=== PATIENT | male | born 1975 | race Caucasian/White ===

== ENCOUNTER 2018-05-26 08:00 | Outpatient (CLI) | payer BC, SELFPAY ==
[2018-05-26 08:26] LABS: Hemoglobin A1C 6.1 % (4.5-6.2)
[2018-05-26 09:31] LABS: ALT 81 U/L (12-78); AST 34 U/L (15-37); Albumin 4.2 g/dL (3.4-5.0); Alkaline Phosphatase 88 U/L (46-116); Anion Gap 12.9 mmol/L (3-11); BUN 23 mg/dL (7-18); Bilirubin, Total 0.7 mg/dL (0.2-1.0); CO2 23.1 mmol/L (21.0-32.0); CREATININE 1.08 mg/dL (0.70-1.30); Chloride 106 mmol/L (98-107); Glucose 117 mg/dL (70-100); Potassium 4.2 mmol/L (3.5-5.1); Sodium 142 mmol/L (136-145); Total Protein 7.7 g/dL (6.4-8.2)
== END 2018-05-26 08:20 ==
PROVIDERS: PCP Family Medicine; Visit Provider Family Medicine
DX: E78.5 Hyperlipidemia, unspecified (principal); E11.9 Type 2 diabetes mellitus without complications
CPT/HCPCS: 36415; 80053; 83036

== ENCOUNTER 2018-06-15 07:43 | Day surgery (SDC) | payer BC, SELFPAY ==
--- NOTE | 2018-06-15 06:28 | PDOC.DSDIS_ITS ---
Discharge Plan Disposition Patient Disposition: HOME Condition: Good Discharge Details Reason For Visit: Diarrhea Attending Provider: Hayley Patton Primary Care Provider: Twin Galvin Home Meds and New Rx's Prescriptions: Continue atorvastatin 20 mg tablet 20 mg PO DAILY Qty: 90 RF: 3 topiramate [Topamax] 50 mg tablet 50 mg PO HS Qty: 90 RF: 3 mometasone 0.1 % cream 1 applic TP BID PRN (Reason: psoriasis) Qty: 45 RF: 2 coenzyme Q10 [Co Q-10] 100 mg capsule 100 mg PO DAILY RF: 0 metformin 500 MG tablet 500 mg PO BID 90 Days Qty: 180 RF: 3 prochlorperazine maleate 5 MG tablet 5 mg PO Q8H PRN Qty: 30 RF: 3 acetaminophen [Tylenol] 325 mg Capsule 925 mg PO Q6H PRNRF: 0 Discontinued polyethylene glycol 3350 17 gram powder in packet 255 g PO DAILY Qty: 15 RF: 0 bisacodyl [Dulcolax (bisacodyl)] 5 mg tablet,delayed release (DR/EC) 5 mg PO ONCE Qty: 4 RF: 0 Discharge Instructions Instructions: Colonoscopy (DC) Additional Instructions: Findings: Normal appearing Small and large bowel Multiple bx done to rule out microscopic colitis Follow up: I will call with results and go from there New Medications: none Please call if you develop: fevers >101.5 Nausea or Vomiting Abdominal pain that is not transient 1. Because there will be medication in your system for the next 24 hours, you may feel a little sleepy. Your coordination will be affected. Therefore: a. Do not drive or operate dangerous equipment for 24 hours. b. Do not drink alcohol beverages for 24 hours (not even beer). c. Plan to go home and rest for the day. 2. Generally there are no restrictions on your activity after a day or so has gone by, but you may feel a bit fatigued for a few days. 3 After you arrive home you may have a light meal and return to a normal diet as you can tolerate it without feeling sick to your stomach. 4. After surgery, you may feel pain or discomfort. This should be only transient , but if it persists please contact your doctor. 5. If there are any questions regarding the findings of your procedure, please feel free to contact your doctor. 6. If you are unable to contact your doctor with a problem, contact the hospital at [phone]. 6. Continue all your regular medications unless directed otherwise. I understand the above instructions and have no questions. Signature of Patient or Responsible Adult Escort Date/Time Name of Responsible Adult Escort Signature of Nurse Date/Time Activity:: Activity as Tolerated Diet:: As Tolerated Discharge Orders Discharge Orders: Discharge Order (Routine); Ordered 06/15/18 Ordered By: Hayley Patton
--- NOTE | 2018-06-15 06:29 | W.COLOREPORT ---
Colonoscopy Report Date of procedure: 06/15/18 Pre-op diagnosis general: Diarrhea Post-op diagnosis procedure note: same Procedure: Colonoscopy with biopsies Surgeon: Hayley Patton Anesthesia proc note operative: MAC (Lacey Garcia CRNA) Estimated blood loss (mL): 5 Pathology: other (multiple random biopsies of the large bowel) Complications: None Disposition: same day Indications: Mr. Duran is a pleasant 42 year old male seen in the office for abdominal pain and diarrhea. Risks benefits and complications were reviewed with the patient and he wished to proceed no guarantees were given or implied. Prep: Miralax/Dulcolax Procedure Start Time: 09:42 Procedure End Time: 10:04 Retraction Time: 17 minutes Findings: Normal appearing terminal ileum and colon Procedure Description: After informed consent was obtained the patient was taken to the procedure room and placed in a left decubitous position. Monitors were applied and a time out was done. The patients name, date of , procedure, allergies to medications and metal in their body was reviewed. The patient was then sedated. Once sedated and comfortable a rectal exam was done. External exam was normal. Internal exam revealed a normal sphincter tone and no palpable masses. The prostate was normal. The scope was then introduced and retroflexed. No internal hemorrhoids were identified. The scope was then advanced to the cecum without difficulty. The TI and appendiceal orifice were identified. The prep was adequate. The scope was advanced into the terminal ileum and was normal. The scope was then slowly retracted over 17 minutes back into the rectum. Multiple biopsies were done throughout the large bowel to rule out microscopic colitis. The scope was removed and the patient was woken up and taken back to Same day surgery in stable condition. The patient tolerated the procedure well and there were no immediate complications. Follow up: The patient should follow up in 10 years unless they develop changes in bowel habits or other new gastrointestinal complaints. I will call with the results of the biopsies.
[2018-06-15 08:06] VITALS: BP 137/95; PULSE 76; RESP 18; TEMP 36.9; O2SAT 95
[2018-06-15] MEDS: Lactated Ringers 1,000 ML 80 ML IV (08:27)
--- NOTE | 2018-06-15 09:50 | BOWEL_PTH ---
PATIENT: Carlos Duran LOC: [facility] U#:[id number] AGE/SX: 42/M ROOM: RE06/15/[address]: Hayley Patton MD : 1975 BED: DIS: 06/15/2018 SPEC #: [id number] RECD: 06/15/18 12:28 STATUS: HUGH REQ #: [id number] LYNN: 06/15/18 09:[address]: Hayley Patton DEPT: Surgical Specimen RECD BY: Petty Peres ENTERED: 06/15/18 12:33 SP TYPE: Bowel OTHR DR: Twin Galvin MD Tissues: 1 - BIOPSY BOWEL 2 - BIOPSY BOWEL 3 - BIOPSY BOWEL 4 - BIOPSY BOWEL Procedures: GROSS AND MICRO LEVEL 4 Comments: [id number]
[2018-06-15 10:47] VITALS: BP 123/81; PULSE 67; RESP 16; TEMP 36.7; O2SAT 98
== END 2018-06-15 11:09 | disposition home or self-care (01) ==
LOC: SUR 07:43
PROVIDERS: PCP Family Medicine; Visit Provider Surgery
PROC: 0DJD8ZZ Inspection of Lower Intestinal Tract, Via Natural or Artificial Opening Endoscopic (ICD-10-PCS; CPT 45378; principal; 2018-06-15 09:00)
DX: R19.7 Diarrhea, unspecified (principal); E11.9 Type 2 diabetes mellitus without complications; Z79.84 Long term (current) use of oral hypoglycemic drugs
CPT/HCPCS: 45380; 88305

== ENCOUNTER 2018-11-24 09:36 | Outpatient (CLI) | payer BC, SELFPAY ==
[2018-11-24 11:41] LABS: ALT 127 U/L (12-78); AST 63 U/L (15-37); Albumin 4.4 g/dL (3.4-5.0); Alkaline Phosphatase 91 U/L (46-116); Anion Gap 11.9 mmol/L (3-11); BUN 16 mg/dL (7-18); Bilirubin, Total 0.4 mg/dL (0.2-1.0); CO2 24.1 mmol/L (21.0-32.0); Calcium 9.2 mg/dL (8.5-10.1); Chloride 105 mmol/L (98-107); Glucose 111 mg/dL (70-100); Potassium 4.6 mmol/L (3.5-5.1); Sodium 141 mmol/L (136-145); Uric Acid 7.1 mg/dL (3.5-7.2)
[2018-11-24 12:01] LABS: Cholesterol 172 mg/dL (50-200); HDL Cholesterol 41 mg/dL (40-60); LDL CHOLESTEROL 107 mg/dL (<100); Triglyceride 155 mg/dL (30-150)
[2018-11-24 12:12] LABS: Hemoglobin A1C 6.3 % (4.5-6.2)
[2018-11-24 12:14] LABS: COMMENT (LAB VIEW ONLY) 203.25 mg/dL
== END 2018-11-24 09:56 ==
PROVIDERS: PCP Family Medicine; Visit Provider Family Medicine
DX: Z00.00 Encounter for general adult medical examination without abnormal findings (principal); E11.9 Type 2 diabetes mellitus without complications; M10.9 Gout, unspecified
CPT/HCPCS: 36415; 80053; 80061; 83721; 82043; 82570; 83036; 84550

== ENCOUNTER 2019-02-02 10:39 | Outpatient (CLI) | payer BC, SELFPAY ==
[2019-02-02 13:04] LABS: Hemoglobin A1C 6.3 % (4.5-6.2)
[2019-02-02 13:28] LABS: ALT 86 U/L (12-78); AST 43 U/L (15-37); Albumin 4.4 g/dL (3.4-5.0); Alkaline Phosphatase 83 U/L (46-116); Anion Gap 11.4 mmol/L (3-11); BUN 17 mg/dL (7-18); Bilirubin, Total 0.6 mg/dL (0.2-1.0); CO2 23.6 mmol/L (21.0-32.0); CREATININE 0.96 mg/dL (0.70-1.30); Calcium 8.9 mg/dL (8.5-10.1); Calculated LDL 102; Chloride 104 mmol/L (98-107); Cholesterol 183 mg/dL (50-200); Glucose 102 mg/dL (70-100); HDL Cholesterol 40 mg/dL (40-60); Potassium 4.3 mmol/L (3.5-5.1); Sodium 139 mmol/L (136-145); Total Protein 7.6 g/dL (6.4-8.2); Triglyceride 209 mg/dL (30-150)
== END 2019-02-02 10:59 ==
PROVIDERS: PCP Family Medicine; Visit Provider Family Medicine
DX: E11.9 Type 2 diabetes mellitus without complications (principal); E78.5 Hyperlipidemia, unspecified
CPT/HCPCS: 36415; 80053; 80061; 83721; 83036

== ENCOUNTER 2019-05-31 08:52 | Outpatient (CLI) | payer BC, SELFPAY ==
[2019-05-31 12:53] LABS: ALT 110 U/L (16-63); AST 49 U/L (15-37); Albumin 4.3 g/dL (3.4-5.0); Alkaline Phosphatase 84 U/L (46-116); Anion Gap 12.1 mmol/L (3-11); BUN 13 mg/dL (7-18); Bilirubin, Total 0.4 mg/dL (0.2-1.0); CO2 24.9 mmol/L (21.0-32.0); CREATININE 1.07 mg/dL (0.70-1.30); Calcium 9.1 mg/dL (8.5-10.1); Chloride 104 mmol/L (98-107); Glucose 122 mg/dL (70-100); Potassium 4.7 mmol/L (3.5-5.1); Sodium 141 mmol/L (136-145); Total Protein 7.7 g/dL (6.4-8.2)
[2019-05-31 14:12] LABS: Hemoglobin A1C 6.5 % (4.5-6.2)
== END 2019-05-31 09:12 ==
PROVIDERS: PCP Family Medicine; Visit Provider Family Medicine
DX: E11.9 Type 2 diabetes mellitus without complications (principal)
CPT/HCPCS: 36415; 80053; 83036

== ENCOUNTER 2019-09-29 07:00 | Outpatient (CLI) | payer BC, SELFPAY ==
[2019-09-29 11:17] LABS: ALT 104 U/L (16-63); AST 55 U/L (15-37); Albumin 4.3 g/dL (3.4-5.0); Alkaline Phosphatase 86 U/L (46-116); Anion Gap 8.7 mmol/L (3-11); BUN 17 mg/dL (7-18); Bilirubin, Total 0.6 mg/dL (0.2-1.0); CO2 25.3 mmol/L (21.0-32.0); CREATININE 1.09 mg/dL (0.70-1.30); Calcium 9.1 mg/dL (8.5-10.1); Calculated LDL 120 mg/dL (<100); Chloride 105 mmol/L (98-107); Cholesterol 200 mg/dL (<200); Glucose 128 mg/dL (74-106); HDL Cholesterol 38 mg/dL (40-60); Potassium 4.2 mmol/L (3.5-5.1); Sodium 139 mmol/L (136-145); Total Protein 7.6 g/dL (6.4-8.2); Triglyceride 214 mg/dL (<150)
[2019-09-29 11:18] LABS: Hemoglobin A1C 6.9 % (3.8-5.6)
== END 2019-09-29 07:20 ==
PROVIDERS: PCP Family Medicine; Visit Provider Family Medicine
DX: E11.9 Type 2 diabetes mellitus without complications (principal); E78.5 Hyperlipidemia, unspecified; K76.0 Fatty (change of) liver, not elsewhere classified
CPT/HCPCS: 36415; 80053; 80061; 83036

== ENCOUNTER 2020-03-13 09:07 | Outpatient (CLI) | payer BC, SELFPAY ==
[2020-03-13 12:34] LABS: HCT 48.7 % (40.0-50.0); HGB 16.9 g/dL (13.5-17.5); Mean Corp. HGB Concentration 34.7 g/dL (32.0-36.0); Mean Corpuscular Hemoglobin 30.3 pg (27.0-33.0); Mean Corpuscular Volume 87.4 fL (80-95); Mean Platelet Volume 9.8 fL (8.0-11.0); Platelet Count 265 x1000/uL (130-400); RBC 5.57 m/cumm (4.50-6.00); RBC Distribution Width 12.6 % (11.8-14.1); White Blood Cell Count 11.31 k/cumm (4.4-10.8)
[2020-03-13 13:10] LABS: ALT 89 U/L (16-63); AST 48 U/L (15-37); Albumin 4.5 g/dL (3.4-5.0); Alkaline Phosphatase 89 U/L (46-116); Anion Gap 12.4 mmol/L (3-11); BUN 18 mg/dL (7-18); Bilirubin, Total 0.7 mg/dL (0.2-1.0); CO2 24.6 mmol/L (21.0-32.0); COMMENT (LAB VIEW ONLY) 221.18 mg/dL; CREATININE 1.13 mg/dL (0.70-1.30); Calcium 9.3 mg/dL (8.5-10.1); Calculated LDL 114 mg/dL (<100); Chloride 104 mmol/L (98-107); Cholesterol 192 mg/dL (<200); Glucose 113 mg/dL (74-106); HDL Cholesterol 41 mg/dL (40-60); Microalb ug/mg Crea 44.7 ug/mg Cr; Potassium 4.4 mmol/L (3.5-5.1); Sodium 141 mmol/L (136-145); Total Protein 7.7 g/dL (6.4-8.2); Triglyceride 185 mg/dL (<150); Vitamin B12 524 pg/mL (193-986)
[2020-03-13 13:23] LABS: Uric Acid 7.3 mg/dL (3.5-7.2)
== END 2020-03-13 09:27 ==
PROVIDERS: PCP Family Medicine; Visit Provider Family Medicine
DX: E11.9 Type 2 diabetes mellitus without complications (principal); M10.9 Gout, unspecified; K76.0 Fatty (change of) liver, not elsewhere classified
CPT/HCPCS: 36415; 80053; 80061; 85027; 82043; 82570; 82607; 84550

== ENCOUNTER 2021-01-30 07:56 | Outpatient (CLI) | payer BC, SELFPAY ==
[2021-01-30 12:51] LABS: ALT 70 U/L (16-63); AST 29 U/L (15-37)
[2021-01-30 12:56] LABS: Hemoglobin A1C 6.9 % (<5.7)
== END 2021-01-30 07:57 | disposition home or self-care (01) ==
LOC: LOS 07:56
PROVIDERS: PCP Family Medicine; Referring Provider Family Medicine; Visit Provider Family Medicine
DX: R94.5 Abnormal results of liver function studies (principal); K76.0 Fatty (change of) liver, not elsewhere classified; R73.9 Hyperglycemia, unspecified; M10.9 Gout, unspecified
CPT/HCPCS: 36415; 83036; 84450; 84460; 84550

== ENCOUNTER 2021-04-04 03:48 | Outpatient (CLI) | payer BC, SELFPAY ==
[2021-04-06 21:51] LABS: Tissue Transglutaminase Ab IgA <1.2 U/mL; Tissue Transglutaminase Ab IgG 5.9 U/mL
== END 2021-04-04 03:49 | disposition home or self-care (01) ==
LOC: LBO 03:48
PROVIDERS: PCP Family Medicine; Visit Provider Family Medicine
DX: K52.9 Noninfective gastroenteritis and colitis, unspecified (principal)
CPT/HCPCS: 36415; 83516

== ENCOUNTER 2021-10-03 03:29 | Outpatient (CLI) | payer BC, SELFPAY ==
[2021-10-03 09:48] LABS: CREATININE 1.1 mg/dL (0.70-1.30); Calculated LDL 101 mg/dL (<100); Cholesterol 189 mg/dL (<200); HDL Cholesterol 41 mg/dL (40-60); Triglyceride 236 mg/dL (<150)
[2021-10-03 12:39] LABS: Lab Add On Test DONE
== END 2021-10-03 03:30 | disposition home or self-care (01) ==
LOC: LBO 03:30
PROVIDERS: PCP Family Medicine; Visit Provider Family Medicine
DX: I10 Essential (primary) hypertension (principal); E78.5 Hyperlipidemia, unspecified
CPT/HCPCS: 36415; 80061; 82565; 84132

== ENCOUNTER 2022-04-25 03:23 | Outpatient (CLI) | payer BC, SELFPAY ==
[2022-04-25 09:41] LABS: Vitamin B12 471 pg/mL (193-986)
[2022-04-25 18:11] LABS: Albumin ug/mg Crea 70 (<30); Albumin, Ur 14.4 mg/dL (See Note); Creatinine, Ur 204.6 mg/dL (See Note)
== END 2022-04-25 03:24 | disposition home or self-care (01) ==
LOC: LBO 03:23
PROVIDERS: PCP Family Medicine; Visit Provider Family Medicine
DX: D64.9 Anemia, unspecified (principal)
CPT/HCPCS: 36415; 82043; 82570; 82607

== ENCOUNTER 2022-10-03 15:50 | Outpatient (REF) | payer BC, SELFPAY ==
[2022-10-03 15:56] LABS: COMMENT (LAB VIEW ONLY) 215.96 mg/dL
== END 2022-10-03 15:51 | disposition home or self-care (01) ==
LOC: LBN 15:50
PROVIDERS: PCP Family Medicine; Visit Provider Family Medicine
DX: E11.9 Type 2 diabetes mellitus without complications (principal)
CPT/HCPCS: 82043; 82570

== ENCOUNTER 2023-07-03 02:42 | Outpatient (CLI) | payer BC, SELFPAY ==
[2023-07-03 09:46] LABS: CREATININE 1.1 mg/dL (0.70-1.30); Calculated LDL 95 mg/dL (<100); Cholesterol 173 mg/dL (<200); Estimated GFR 84.37 (mL/min/1.73m2); HDL Cholesterol 42 mg/dL (40-60); Potassium 4.2 mmol/L (3.5-5.1); Triglyceride 181 mg/dL (<150)
[2023-07-03 09:48] LABS: Hemoglobin A1C 6.5 % (<5.7)
[2023-07-03 11:13] LABS: Lab Add On Test DONE
[2023-07-03 11:33] LABS: ALT 63 U/L (16-63); AST 31 U/L (15-37)
== END 2023-07-03 02:43 | disposition home or self-care (01) ==
PROVIDERS: PCP Family Medicine; Visit Provider Family Medicine
DX: I10 Essential (primary) hypertension (principal); E78.5 Hyperlipidemia, unspecified; E11.51 Type 2 diabetes mellitus with diabetic peripheral angiopathy without gangrene
CPT/HCPCS: 36415; 80061; 82565; 83036; 84132; 84450; 84460

== ENCOUNTER 2023-10-14 11:52 | Outpatient (REF) | payer BC, SELFPAY ==
[2023-10-14 14:08] LABS: Microalb ug/mg Crea 80.5 ug/mg Cr
== END 2023-10-14 11:53 | disposition home or self-care (01) ==
LOC: LBN 11:52
PROVIDERS: PCP Family Medicine; Visit Provider Family Medicine
DX: E11.9 Type 2 diabetes mellitus without complications (principal)
CPT/HCPCS: 82043; 82570

== ENCOUNTER 2024-04-20 10:44 | Outpatient (CLI) | payer BC, SELFPAY ==
[2024-04-20 11:31] LABS: Hemoglobin A1C 6.9 % (<5.7)
[2024-04-20 11:59] LABS: CREATININE 0.9 mg/dL (0.70-1.30); Estimated GFR 106.67 (mL/min/1.73m2); Potassium 4.1 mmol/L (3.5-5.1)
[2024-04-22 15:18] LABS: Lab Add On Test DONE
[2024-04-22 16:30] LABS: TSH 1.56 uIU/Ml (0.36-3.74)
== END 2024-04-20 10:45 | disposition home or self-care (01) ==
LOC: LBO 10:48
PROVIDERS: PCP Family Medicine; Visit Provider Family Medicine
DX: I10 Essential (primary) hypertension (principal); E11.51 Type 2 diabetes mellitus with diabetic peripheral angiopathy without gangrene; I70.209 Unspecified atherosclerosis of native arteries of extremities, unspecified extremity; E66.9 Obesity, unspecified
CPT/HCPCS: 36415; 82565; 83036; 84132; 84443

== ENCOUNTER 2024-11-09 08:22 | Outpatient (CLI) | payer BC, SELFPAY ==
[2024-11-09 12:17] LABS: Abs Immature Grans 0.04 10^3/uL (0.0-0.06); Absolute Eosinophil Count 0.87 10^3/uL (0.0-0.7); Absolute Lymphocyte Count 3.84 10^3/uL (1.2-3.4); Absolute Monocyte Count 0.81 10^3/uL (0.1-0.8); Absolute Neutrophil Count 6.96 10^3/uL (1.2-6.7); Basophils % 0.9 %; Eosinophils % 6.9 %; HCT 53.6 % (40.0-50.0); HGB 18.5 g/dL (13.5-17.5); Immature Grans % 0.3 %; Lymphocytes % 30.4 %; MCH 31.1 pg (27.0-33.0); MCHC 34.5 % (32.0-36.0); MCV 90 fL (80-95); MPV 10.2 fL (8.0-11.0); Monocytes % 6.4 %; Neutrophils % 55.1 %; Platelet Count 315 10^3/uL (130-400); RBC 5.95 10^6/uL (4.36-5.78); RDW 12.5 % (11.8-14.1); RDW-SD 40.7 fL; WBC 12.64 10^3/uL (4.4-10.8)
[2024-11-09 12:20] LABS: Absolute Basophil Count 0.11 10^3/uL (0.0-0.2); ESR 6 mm/hr (0-15)
[2024-11-09 12:39] LABS: ALT 85 U/L (16-63); AST 51 U/L (15-37); Albumin 4.6 g/dL (3.4-5.0); Alkaline Phosphatase 94 U/L (46-116); Anion Gap 13.6 mmol/L (3-11); BUN 18 mg/dL (7-18); Bilirubin, Total 0.9 mg/dL (0.2-1.0); C-Reactive Protein < 0.50 mg/dL (<or=0.5); CO2 23.4 mmol/L (21.0-32.0); Calcium 9.7 mg/dL (8.5-10.1); Chloride 107 mmol/L (98-107); Estimated GFR 93.42 (mL/min/1.73m2); Glucose 122 mg/dL (74-106); Potassium 4.2 mmol/L (3.5-5.1); Sodium 144 mmol/L (136-145); TSH (W/Ref FT4) 1.92 uIU/mL (0.36-3.74); Total Protein 7.9 g/dL (6.4-8.2)
[2024-11-10 11:22] LABS: Lyme Ab w Rflx to Lyme Confirm Negative (Negative)
[2024-11-10 22:52] LABS: Lab Add On Test DONE
[2024-11-12 00:20] LABS: Anaplasma phagocytophilum Negative (Negative); B. miyamotoi PCR Negative (Negative); Babesia divergens/MO-1 Negative (Negative); Babesia duncani Negative (Negative); Babesia microti Negative (Negative); Ehrlichia chaffeensis Negative (Negative); Ehrlichia ewingii/canis Negative (Negative); Ehrlichia muris eauclairensis Negative (Negative)
[2024-11-17 09:03] LABS: Erythropoietin QNS mIU/mL
== END 2024-11-09 08:23 | disposition home or self-care (01) ==
LOC: LOS 08:22
PROVIDERS: PCP Family Medicine; Referring Provider Family Medicine; Visit Provider Family Medicine
DX: D64.9 Anemia, unspecified (principal); E03.9 Hypothyroidism, unspecified; R10.9 Unspecified abdominal pain; R41.89 Other symptoms and signs involving cognitive functions and awareness; R53.1 Weakness; R25.3 Fasciculation; D75.1 Secondary polycythemia
CPT/HCPCS: 36415; 80053; 82668; 85652; 87798; 84443; 85025; 86140; 86618

== ENCOUNTER 2024-12-06 01:46 | Outpatient (CLI) | payer BC, SELFPAY ==
--- NOTE | 2024-12-06 07:45 | DI.MRI_ITS ---
Exam(s) MR BRAIN WO/W EXAM: MR BRAIN WO/W CLINICAL HISTORY: recent dysarthria, hx of headaches,R47.1. TECHNIQUE: Multiplanar multisequence MRI of the brain was performed. CONTRAST MATERIAL: IV Contrast: 20 ML of Dotarem contrast administered. COMPARISON: No exams were available for comparison FINDINGS: VENTRICLES AND EXTRA AXIAL SPACES: Normal in size and morphology for the patient's age. HEMORRHAGE: None. CEREBRAL PARENCHYMA: No focus of restricted diffusion to suggest acute infarct. No space-occupying le rishi identified. BRAINSTEM/CEREBELLUM: Normal. CALVARIUM: Normal. ENHANCEMENT: No suspicious enhancement identified. VISUALIZED PARANASAL SINUSES/MASTOIDS: Clear. Orbits: Unremarkable. Pituitary: Not enlarged. Vasculature: Normal flow voids. IMPRESSION: Unremarkable MRI of the brain. DATA REPOSITORY:
[2024-12-06] MEDS: Normal Saline Flush 10 ML SYR IVP (13:08)
[2024-12-06] MEDS: Gadoterate meglumine 20 ML SYRINGE IVP (13:08)
== END 2024-12-06 02:06 ==
LOC: DI 01:46
PROVIDERS: PCP Family Medicine; Visit Provider Family Medicine
DX: R47.1 Dysarthria and anarthria (principal); R51.9 Headache, unspecified
CPT/HCPCS: 70553

== ENCOUNTER 2024-12-24 07:19 | Outpatient (CLI) | payer BC, SELFPAY ==
[2024-12-24 07:52] LABS: Abs Immature Grans 0.03 10^3/uL (0.0-0.06); Absolute Basophil Count 0.06 10^3/uL (0.0-0.2); Absolute Eosinophil Count 0.31 10^3/uL (0.0-0.7); Absolute Monocyte Count 0.68 10^3/uL (0.1-0.8); Absolute Neutrophil Count 5.12 10^3/uL (1.2-6.7); Basophils % 0.6 %; Eosinophils % 3.2 %; HCT 49.1 % (40.0-50.0); HGB 17.2 g/dL (13.5-17.5); Immature Grans % 0.3 %; Lymphocytes % 36.1 %; MCH 31.1 pg (27.0-33.0); MCV 89 fL (80-95); MPV 9.2 fL (8.0-11.0); Neutrophils % 52.8 %; Platelet Count 234 10^3/uL (130-400); RBC 5.53 10^6/uL (4.36-5.78); RDW 12.5 % (11.8-14.1); RDW-SD 40.9 fL
[2024-12-24 08:40] LABS: ALT 63 U/L (16-63); AST 37 U/L (15-37); Albumin 4.1 g/dL (3.4-5.0); Alkaline Phosphatase 81 U/L (46-116); Anion Gap 13.4 mmol/L (3-11); BUN 19 mg/dL (7-18); Bilirubin, Total 0.7 mg/dL (0.2-1.0); CO2 21.6 mmol/L (21.0-32.0); CREATININE 0.8 mg/dL (0.70-1.30); Calcium 9.2 mg/dL (8.5-10.1); Chloride 108 mmol/L (98-107); Estimated GFR 109.85 (mL/min/1.73m2); Glucose 148 mg/dL (74-106); Potassium 3.8 mmol/L (3.5-5.1); Sodium 143 mmol/L (136-145); Total Protein 7.6 g/dL (6.4-8.2)
[2024-12-27 11:32] LABS: Lyme Ab w Rflx to Lyme Confirm Negative (Negative)
[2024-12-27 15:49] LABS: Anaplasma phagocytophilum Negative (Negative); B. miyamotoi PCR Negative (Negative); Babesia divergens/MO-1 Negative (Negative); Babesia duncani Negative (Negative); Babesia microti Negative (Negative); Ehrlichia chaffeensis Negative (Negative); Ehrlichia ewingii/canis Negative (Negative); Ehrlichia muris eauclairensis Negative (Negative)
== END 2024-12-24 07:20 | disposition home or self-care (01) ==
LOC: LBO 07:20
PROVIDERS: PCP Family Medicine; Visit Provider Family Medicine
DX: R47.1 Dysarthria and anarthria (principal); R25.3 Fasciculation; D64.9 Anemia, unspecified; R10.9 Unspecified abdominal pain
CPT/HCPCS: 36415; 80053; 87798; 85025; 86618

== ENCOUNTER 2025-01-04 18:48 | Outpatient (CLI) | payer BC, SELFPAY ==
[2025-01-04 17:20] LABS: Creatine Kinase 158 U/L (39-308); PHOSPHORUS 3.3 mg/dL (2.6-4.7)
[2025-01-04 18:21] LABS: Folate 14.5 ng/mL (8.6-20.0); Vitamin B12 339 pg/mL (193-986)
[2025-01-05 09:14] LABS: Lab Add On Test DONE
[2025-01-05 18:10] LABS: Rheumatoid Factor <8.6 IU/mL (<12.0)
[2025-01-06 12:00] LABS: ANA Interpretation Negative (Negative)
[2025-01-06 14:18] LABS: Albumin 63.7 % (55.8-66.1); Albumin g/dL 4.9 g/dL (3.6-5.2); Total Protein 7.7 g/dL (6.3-8.2)
[2025-01-12 09:03] LABS: Misc Referral (MAYO) See Comments
[2025-01-12 09:51] LABS: Methylmalonic Acid 0.19 nmol/mL (<=0.40)
== END 2025-01-04 18:49 | disposition home or self-care (01) ==
LOC: LBO 18:49
PROVIDERS: PCP Family Medicine; Visit Provider Psychiatry & Neurology Neurology
DX: R25.3 Fasciculation (principal); G62.9 Polyneuropathy, unspecified; R47.1 Dysarthria and anarthria
CPT/HCPCS: 36415; 80186; 82550; 82607; 82746; 83520; 84100; 84165; 86038; 86431

== ENCOUNTER 2025-02-01 01:03 | Outpatient (CLI) | payer BC, SELFPAY ==
--- NOTE | 2025-02-01 06:30 | DI.MRI_ITS ---
Exam(s) MR CERVICAL SPINE WO EXAM: MR CERVICAL SPINE WO CLINICAL HISTORY: fasciculations in arms and tongue,r25.3 TECHNIQUE: Multiplanar multisequence MRI of the cervical spine was performed without intravenous con trast. COMPARISON: There are no plain films of cervical spine available at time of this MRI interpretation. FINDINGS: CERVICOMEDULLARY JUNCTION: Intact with no evidence of cerebellar tonsillar ectopia. No obvious abnor mality of the odontoid process. No evidence of Chiari 1 malformation. CERVICAL SPINAL CORD: There is no abnormal signal in the cervical spinal cord and no evidence of foca l cord atrophy nor focal cord swelling. OSSEOUS:There are no cervical fractures evident. No significant osseous lesions in the cervical vert ebrae. There is no loss of the normal cervical curvature. INDIVIDUAL LEVELS: C2-3: No disc herniation or central canal stenosis. No significant facet arthropathy. No foraminal stenosis. C3-4: No disc herniation or central canal stenosis. There is some facet arthropathy on the left side. There is tiny left-sided Luschka joint osteophytes. There is mild left-sided foraminal stenosis. Th ere is no foraminal stenosis on the right side at this level. C4-5: No disc herniation nor central canal stenosis.No facet arthropathy. No foraminal stenosis C5-6: Normal disc height and signal. No disc herniation or central canal stenosis. No significant f acet arthrosis nor foraminal stenosis on either side. C6-7: Mild disc space narrowing. There is a central-posterolateral right disc herniation at this le mary which extends posteriorly 4 mm and is approximately 12 mm wide, effacing the anterior and right s geovanna of the thecal sac and resulting in AP canal measurement of 7 mm. There is also a significant Sapna chka joint osteophyte on the right side at this level and a tiny left-sided Luschka joint osteophyte. There are only mild degenerative changes in the facet joints at this level. Mild foraminal stenosi s on the right side. No foraminal stenosis on the left side. C7-T1: No disc herniation nor central canal stenosis. No facet arthropathy.No foraminal stenosis. IMPRESSION: 1. Main findings here at C6-7 level where it there is a central-posterolateral right herniation at this level as described above. This effaces the anterior thecal sac and right lateral recess. There is mild ipsilateral foraminal stenosis. There is also a prominent right-sided Luschka joint osteophyte at this level. 2. Other levels appear unremarkable. DATA REPOSITORY:
== END 2025-02-01 01:23 ==
LOC: DI 01:03
PROVIDERS: PCP Family Medicine; Visit Provider Psychiatry & Neurology Neurology
DX: R25.3 Fasciculation (principal); M50.223 Other cervical disc displacement at C6-C7 level
CPT/HCPCS: 72141

== ENCOUNTER 2025-02-09 10:04 | Outpatient (CLI) | payer BC, SELFPAY ==
[2025-02-09 11:12] LABS: FREE T4 1.03 ng/dL (0.76-1.46)
[2025-02-09 11:31] LABS: Vitamin B12 819 pg/mL (193-986)
== END 2025-02-09 10:05 | disposition home or self-care (01) ==
LOC: LBO 10:04
PROVIDERS: PCP Family Medicine; Visit Provider Psychiatry & Neurology Neurology
DX: E66.9 Obesity, unspecified (principal); G62.9 Polyneuropathy, unspecified
CPT/HCPCS: 36415; 82607; 84439

== ENCOUNTER 2025-05-18 13:32 | Outpatient (CLI) | payer BC, SELFPAY ==
[2025-05-18 10:01] LABS: Abs Immature Grans 0.04 10^3/uL (0.0-0.06); HCT 44.9 % (40.0-50.0); HGB 16.0 g/dL (13.5-17.5); Immature Grans % 0.4 %; MCH 31.7 pg (27.0-33.0); MCHC 35.6 % (32.0-36.0); MCV 89 fL (80-95); MPV 9.6 fL (8.0-11.0); Platelet Count 241 10^3/uL (130-400); RBC 5.04 10^6/uL (4.36-5.78); RDW 12.8 % (11.8-14.1); RDW-SD 41.7 fL; WBC 11.09 10^3/uL (4.4-10.8)
[2025-05-18 10:29] LABS: ALT 63 U/L (16-63); AST 36 U/L (15-37); Albumin 4.4 g/dL (3.4-5.0); Alkaline Phosphatase 83 U/L (46-116); Anion Gap 9.9 mmol/L (3-11); BUN 10 mg/dL (7-18); Bilirubin, Total 0.9 mg/dL (0.2-1.0); CO2 26.1 mmol/L (21.0-32.0); Calcium 9.5 mg/dL (8.5-10.1); Chloride 104 mmol/L (98-107); Glucose 164 mg/dL (74-106); Potassium 4.0 mmol/L (3.5-5.1); Sodium 140 mmol/L (136-145); Total Protein 7.9 g/dL (6.4-8.2)
== END 2025-05-18 13:33 | disposition home or self-care (01) ==
LOC: LBO 07-01 13:32
PROVIDERS: PCP Family Medicine; Visit Provider Psychiatry & Neurology Neurology
DX: G12.21 Amyotrophic lateral sclerosis (principal); T50.905A Adverse effect of unspecified drugs, medicaments and biological substances, initial encounter
CPT/HCPCS: 36415; 80053; 85025

== ENCOUNTER 2025-06-16 13:15 | Outpatient (CLI) | payer BC, SELFPAY ==
[2025-06-16 13:35] LABS: Abs Immature Grans 0.04 10^3/uL (0.0-0.06); HCT 44.2 % (40.0-50.0); HGB 15.6 g/dL (13.5-17.5); Immature Grans % 0.4 %; MCH 31.3 pg (27.0-33.0); MCHC 35.3 % (32.0-36.0); MCV 89 fL (80-95); MPV 9.5 fL (8.0-11.0); Platelet Count 236 10^3/uL (130-400); RBC 4.99 10^6/uL (4.36-5.78); RDW 12.2 % (11.8-14.1); RDW-SD 39.5 fL; WBC 10.88 10^3/uL (4.4-10.8)
[2025-06-16 14:17] LABS: INR 1.1 (0.9-1.1); PTT Activated 25.0 sec (20.6-30.2); Prothrombin Time 10.7 sec (9.1-11.1)
[2025-06-16 14:59] LABS: Magnesium 2.0 mg/dL (1.8-2.4)
[2025-06-16 18:45] LABS: ALT 65 U/L (16-63); AST 38 U/L (15-37); Albumin 4.1 g/dL (3.4-5.0); Alkaline Phosphatase 99 U/L (46-116); Anion Gap 14.7 mmol/L (3-11); BUN 15 mg/dL (7-18); Bilirubin, Total 0.6 mg/dL (0.2-1.0); CO2 20.3 mmol/L (21.0-32.0); Calcium 9.1 mg/dL (8.5-10.1); Chloride 102 mmol/L (98-107); Estimated GFR 106.01 (mL/min/1.73m2); Glucose 304 mg/dL (74-106); Potassium 3.8 mmol/L (3.5-5.1); Sodium 137 mmol/L (136-145); Total Protein 7.8 g/dL (6.4-8.2)
== END 2025-06-16 13:16 | disposition home or self-care (01) ==
LOC: LBO 13:15
PROVIDERS: Psychiatry & Neurology Neurology; PCP Family Medicine; Visit Provider Psychiatry & Neurology Neurology
DX: G12.21 Amyotrophic lateral sclerosis (principal); T50.905A Adverse effect of unspecified drugs, medicaments and biological substances, initial encounter
CPT/HCPCS: 36415; 80053; 83735; 84100; 85025; 85610; 85730

== ENCOUNTER 2025-06-16 13:32 | Outpatient (CLI) | payer BC, SELFPAY ==
--- NOTE | 2025-06-16 13:30 | RT.EKG_ITS ---
APPROVED REPORT Exam: Resting ECG Reason for Exam: ALS Patient Location: O HR:91 bpm ECG Measurements Heart Rate 91 AXIS PA 142 P 14 QRSd 93 QRS -5 QT 341 T 14 QTc 420 Conclusion Sinus rhythm...normal P axis, V-rate 50- 99 RSR' in V1 Otherwise normal ECG
== END 2025-06-16 13:33 | disposition home or self-care (01) ==
PROVIDERS: PCP Family Medicine; Visit Provider Family Medicine
DX: G12.21 Amyotrophic lateral sclerosis (principal)
CPT/HCPCS: 93005; 93010

== ENCOUNTER 2025-06-28 11:03 | Outpatient (CLI) | payer BC, SELFPAY ==
[2025-06-28 11:33] LABS: Abs Immature Grans 0.04 10^3/uL (0.0-0.06); HCT 45.0 % (40.0-50.0); HGB 15.6 g/dL (13.5-17.5); Immature Grans % 0.4 %; MCH 30.8 pg (27.0-33.0); MCHC 34.7 % (32.0-36.0); MCV 89 fL (80-95); MPV 9.5 fL (8.0-11.0); Platelet Count 253 10^3/uL (130-400); RBC 5.06 10^6/uL (4.36-5.78); RDW 12.1 % (11.8-14.1); RDW-SD 39.6 fL; WBC 9.88 10^3/uL (4.4-10.8)
[2025-06-28 12:14] LABS: ALT 65 U/L (16-63); AST 33 U/L (15-37); Albumin 4.3 g/dL (3.4-5.0); Alkaline Phosphatase 95 U/L (46-116); Anion Gap 13.0 mmol/L (3-11); BUN 12 mg/dL (7-18); Bilirubin, Total 0.7 mg/dL (0.2-1.0); CO2 23.0 mmol/L (21.0-32.0); Calcium 9.0 mg/dL (8.5-10.1); Chloride 100 mmol/L (98-107); Estimated GFR 106.01 (mL/min/1.73m2); Glucose 323 mg/dL (74-106); Magnesium 1.9 mg/dL (1.8-2.4); Potassium 3.9 mmol/L (3.5-5.1); Sodium 136 mmol/L (136-145); Total Protein 7.7 g/dL (6.4-8.2)
[2025-06-28 12:25] LABS: Digoxin < 0.20 ng/mL (0.90-2.00)
[2025-06-30 17:41] LABS: Lab Add On Test DONE
[2025-06-30 17:58] LABS: Hemoglobin A1C 7.2 % (<5.7)
== END 2025-06-28 11:04 | disposition home or self-care (01) ==
LOC: LBO 11:03
PROVIDERS: PCP Family Medicine; Visit Provider Psychiatry & Neurology Neurology
DX: G12.21 Amyotrophic lateral sclerosis (principal)
CPT/HCPCS: 36415; 80053; 80162; 83036; 83735; 84100; 85025

== ENCOUNTER 2025-07-05 10:40 | Outpatient (CLI) | payer BC, SELFPAY ==
[2025-07-05 10:54] LABS: Abs Immature Grans 0.03 10^3/uL (0.0-0.06); HCT 44.6 % (40.0-50.0); HGB 15.7 g/dL (13.5-17.5); Immature Grans % 0.3 %; MCH 31.2 pg (27.0-33.0); MCHC 35.2 % (32.0-36.0); MCV 89 fL (80-95); MPV 9.4 fL (8.0-11.0); Platelet Count 235 10^3/uL (130-400); RBC 5.03 10^6/uL (4.36-5.78); RDW 12.1 % (11.8-14.1); RDW-SD 39.7 fL; WBC 11.29 10^3/uL (4.4-10.8)
[2025-07-05 11:17] LABS: ALT 56 U/L (16-63); AST 35 U/L (15-37); Albumin 4.2 g/dL (3.4-5.0); Alkaline Phosphatase 97 U/L (46-116); Anion Gap 14.9 mmol/L (3-11); BUN 14 mg/dL (7-18); Bilirubin, Total 0.7 mg/dL (0.2-1.0); CO2 21.1 mmol/L (21.0-32.0); Calcium 9.1 mg/dL (8.5-10.1); Chloride 103 mmol/L (98-107); Glucose 207 mg/dL (74-106); Magnesium 1.6 mg/dL (1.8-2.4); Potassium 3.7 mmol/L (3.5-5.1); Sodium 139 mmol/L (136-145); Total Protein 7.9 g/dL (6.4-8.2)
[2025-07-05 11:40] LABS: Digoxin 0.65 ng/mL (0.90-2.00)
== END 2025-07-05 10:41 | disposition home or self-care (01) ==
LOC: LBO 10:41
PROVIDERS: PCP Family Medicine; Visit Provider Psychiatry & Neurology Neurology
DX: G12.21 Amyotrophic lateral sclerosis (principal)
CPT/HCPCS: 36415; 80053; 80162; 83735; 84100; 85025

== ENCOUNTER 2025-07-12 10:50 | Outpatient (CLI) | payer BC, SELFPAY ==
[2025-07-12 10:59] LABS: Abs Immature Grans 0.02 10^3/uL (0.0-0.06); HCT 44.3 % (40.0-50.0); HGB 15.3 g/dL (13.5-17.5); Immature Grans % 0.2 %; MCH 30.5 pg (27.0-33.0); MCHC 34.5 % (32.0-36.0); MCV 88 fL (80-95); MPV 9.5 fL (8.0-11.0); Platelet Count 239 10^3/uL (130-400); RBC 5.02 10^6/uL (4.36-5.78); RDW 12.1 % (11.8-14.1); RDW-SD 39.0 fL; WBC 10.43 10^3/uL (4.4-10.8)
[2025-07-12 11:14] LABS: ALT 55 U/L (16-63); AST 33 U/L (15-37); Albumin 4.1 g/dL (3.4-5.0); Alkaline Phosphatase 93 U/L (46-116); Anion Gap 12.8 mmol/L (3-11); BUN 16 mg/dL (7-18); Bilirubin, Total 0.5 mg/dL (0.2-1.0); CO2 22.2 mmol/L (21.0-32.0); Calcium 8.8 mg/dL (8.5-10.1); Chloride 101 mmol/L (98-107); Glucose 275 mg/dL (74-106); Magnesium 1.7 mg/dL (1.8-2.4); Potassium 3.6 mmol/L (3.5-5.1); Sodium 136 mmol/L (136-145); Total Protein 7.6 g/dL (6.4-8.2)
[2025-07-12 11:29] LABS: Digoxin 0.60 ng/mL (0.90-2.00)
== END 2025-07-12 10:51 | disposition home or self-care (01) ==
LOC: LBO 10:50
PROVIDERS: PCP Family Medicine; Visit Provider Psychiatry & Neurology Neurology
DX: G12.21 Amyotrophic lateral sclerosis (principal)
CPT/HCPCS: 36415; 80053; 80162; 83735; 84100; 85025

== ENCOUNTER 2025-07-31 13:00 | Emergency (ER) | payer BC, SELFPAY ==
[2025-07-31 13:07] VITALS: BP 149/91; PULSE 103; RESP 16; TEMP 36.7; O2SAT 96
--- NOTE | 2025-07-31 13:16 | W.ED.GENAD ---
Discharge Plan Disposition Patient Disposition: Home Discharge Details Clinical Impression: Hematuria, Ureterolithiasis Primary Care Provider: Tony Drake ED Provider: Pablo Vieira Iola Meds and New Rx's Prescriptions: Continued losartan-hydrochlorothiazide 100-12.5 mg tablet 1 tab PO DAILY Qty: 90 3RF coenzyme Q10 [Co Q-10] 100 mg capsule 100 mg PO DAILY topiramate [Topamax] 50 mg tablet 50 mg PO HS Qty: 90 3RF (DME) blood-glucose meter Misc See Rx Instructions miscellaneous .MEDSUPPLY Qty: 1 0RF Rx Instructions: As directed (DME) Accu-Chek Guide test strips Strip See Rx Instructions .MEDSUPPLY Qty: 100 3RF Rx Instructions: test daily allopurinol 300 mg tablet 300 mg PO DAILY Qty: 90 3RF cyanocobalamin (vitamin B-12) 1,000 mcg/mL solution See Rx Instructions .ROUTE .COMPLEX Qty: 8 3RF Dose Instruction: INJECT 1000MCG INTO THE MUSCLE ONCE WEEKLY Rx Instructions: INJECT 1000MCG INTO THE MUSCLE ONCE WEEKLY methylcobalamin 50 mg IM .2xw Qty: 24 3RF Rx Instructions: 50mg IM 2x per week. In place of cyanocobalamin IM colestipol 1 gram tablet 1 g PO TID Qty: 270 3RF Rx Instructions: swallow whole tab w/any liquid;do not crush/chew/cut;administer other meds 1hr before/4hr after taking dose dose increase by GI prochlorperazine maleate 5 mg tablet 5 mg PO Q8H PRN Qty: 30 3RF Rx Instructions: Take 1-2 tablets every 8 hours as needed for headache. lorazepam 0.5 mg tablet 0.5 mg PO BID PRN (Reason: anxiety/panic) Qty: 10 0RF atorvastatin 20 mg tablet 20 mg PO DAILY Qty: 90 3RF (DME) lancets Misc See Rx Instructions .MEDSUPPLY Qty: 100 4RF Rx Instructions: Check blood sugar once a day venlafaxine [Effexor XR] 37.5 mg capsule,extended release 24hr 37.5 mg PO DAILY Qty: 90 3RF (DME) Wazzap Luer Lock Syr-needle 3 mL 25 gauge x 1 syringe See Rx Instructions .Route Qty: 4 0RF Rx Instructions: As directed for B12 IM injections dextromethorphan-quinidine 20-10 mg capsule 1 cap PO Q12H ascorbic acid (vitamin C) 500 mg tablet 500 mg PO BID pyridoxine (vitamin B6) 50 mg tablet 50 mg PO DAILY riluzole 50 mg tablet 50 mg PO BID Rx Instructions: administer on an empty stomach, at least 1 hour before or 2 hours after food/meal(s) vitamin E mixed 400 unit capsule 400 unit PO DAILY thiamine HCl (vitamin B1) 50 mg tablet 50 mg PO DAILY metformin [Fortamet] 1,000 mg tablet extended release 24hr 2,000 mg PO DAILY Qty: 180 3RF amlodipine 5 mg tablet 5 mg PO DAILY Qty: 30 3RF Discharge Instructions Instructions: How to Strain Your Urine, Kidney Stone Diet Additional Instructions: You are seen in the emergency department for your testicular pain. You are found to have a kidney stone which is 3 to 4 mm and is near the top of your right ureter. As we discussed if you develop worsening pain cannot urinate or develop any fever please return to the emergency department. Otherwise please follow-up with urology team in the next week. For your pain please take medications as follows: 1. Take acetaminophen (Tylenol), 1,000 mg (two 500 mg tabs) every 6 hours [2. Take ibuprofen (Advil), 400 mg every 6 hours.] Stand Alone Forms: Portal Information Referrals: [facility] [Provider Group] Discharge Data Discharge Date/Time-TO BE ENTERED AT DEPARTURE: 07/31/25 16:28 HPI General Date/Time Provider Initiated Documentation: 07/31/25 13:15. HPI Narrative: MDM This is an overall quite well-appearing normothermic but initially tachycardic 50-year-old male with right sided intermittent testicular pain concerning for torsion vs. kidney stone. Patient circumcised and has had no dysuria make my suspicion lower for urinary tract infection. No pain out of proportion to suggest necrotizing soft tissue infection. No testicular pain to suggest Marcell's gangrene. No right lower quadrant pain to suggest appendicitis. No flank pain to suggest ureterolithiasis so I did not feel patient required a CT scan. Will obtain basic labs in the event the patient was component of dehydration. In setting of his ALS will also obtain a CK level to assess for rhabdomyolysis. No trauma to flank to suggest increased risk for renal injury so I did not feel that the patient required a CT scan of his abdomen pelvis. Soft nontender abdomen so I was not suspicious for referred pain from intra-abdominal source. Circumcised penis make my suspicion lower for balanitis. No signs of paraphimosis on exam. 2:24 PM Mildly elevated CK not consistent with rhabdomyolysis. CBC with new leukocytosis. No thrombocytopenia. No anemia. Basic metabolic panel showing no MEGAN. Hyperglycemia mild anion gap but normal bicarbonate??not consistent with DKA. No acute electrolyte abnormalities. 4:02 PM Patient was found to have a right UPJ 3 to 4 mm calculus with minimal hydronephrosis. As a result I canceled his scrotal ultrasound and since ipsilateral stone was likely the source of his pain. I have asked healthy coordinator Miguelina to have the patient seen in the next week by urology. He will strain urine. We discussed pros and cons of tamsulosin and opiates. Patient and his preferred avoiding opiates as patient is in a clinical trial for ALS and has to have all medications to be on acetaminophen and ibuprofen and antibiotics cleared by the clinical trial. Patient is and I discussed that he should be returned to the emergency department for any worsening pain nausea or vomiting did not stop any inability to urinate. Patient understood return indications and was discharged with an empiric trial of expectant outpatient management. HPI This is a patient with a history of a bruised kidney presenting with right-sided testicular pain and hematuria. The patient experienced right-sided testicular pain at approximately 6 AM, which was alleviated with the administration of 2 Tylenol tablets, allowing him to return to sleep. Upon awakening, he observed brown-colored urine. He reports no recent trauma or falls that could have resulted in injury. He is not currently on any anticoagulant therapy. He has no history of nephrolithiasis and reports no flank or abdominal pain. The testicular pain has since resolved. He reports no recent sexual activity or trauma to the testicles. He also reports no gastrointestinal symptoms such as nausea or vomiting, and no penile discharge. He recalls a similar episode of hematuria last week, which resolved spontaneously. Exam General: Well-appearing in no acute distress speaking in complete sentences. Head: Normocephalic, atraumatic. Eye: Extraocular eye movements intact. No conjunctival injection. No scleral icterus. Ear, nose, mouth, throat: Grossly normal inspection. Normal voice, handling secretions normally. Neck: Trachea midline. Cardiovascular: Well-perfused distal extremities. Respiratory: Nonlabored respiration. Back: No CVA tenderness. No rash to flank. Gastrointestinal: Nondistended abdomen. Soft. Nontender. No rebound. No guarding. : Circumcised penis. Cremasteric reflex intact. No rash to testes. No signs of trauma to the testes. Musculoskeletal: No edema. Moving all 4 extremities spontaneously. Skin: Normal for age and race, grossly normal temperature and turgor. No acute rash. Neurologic: Alert and appropriate, no apparent acute deficits. Related Data Home Medications ?Medication ?Instructions ?Recorded ?Confirmed coenzyme Q10 100 mg capsule (Co 100 mg PO DAILY 05/26/18 06/02/25 Q-10) colestipol 1 gram tablet 1 g PO TID #270 tabs 09/06/24 06/02/25 prochlorperazine maleate 5 mg 5 mg PO Q8H PRN #30 tab-caps 10/14/24 06/02/25 tablet losartan 100 1 tab PO DAILY #90 tabs 11/09/24 06/02/25 mg-hydrochlorothiazide 12.5 mg tablet lorazepam 0.5 mg tablet 0.5 mg PO BID PRN anxiety/panic 02/02/25 06/02/25 #10 tabs atorvastatin 20 mg tablet 20 mg PO DAILY #90 tabs 02/21/25 06/02/25 allopurinol 300 mg tablet 300 mg PO DAILY #90 tabs 02/22/25 06/02/25 blood sugar diagnostic (Accu-Chek #100 ea 02/22/25 06/02/25 Guide test strips) blood-glucose meter #1 ea 02/22/25 06/02/25 topiramate 50 mg tablet (Topamax) 50 mg PO HS #90 tab-caps 02/22/25 06/02/25 lancets #100 ea 03/21/25 06/02/25 venlafaxine 37.5 mg 37.5 mg PO DAILY #90 caps 04/04/25 06/02/25 capsule,extended release 24 hr (Effexor XR) syringe with needle 3 mL 25 gauge #4 ea 04/18/25 06/02/25 x 1 (Wazzap Luer Lock Syringe with needle) ascorbic acid (vitamin C) 500 mg 500 mg PO BID 05/04/25 06/02/25 tablet dextromethorphan 20 mg-quinidine 1 cap PO Q12H 05/04/25 06/02/25 10 mg capsule pyridoxine (vitamin B6) 50 mg 50 mg PO DAILY 05/04/25 06/02/25 tablet riluzole 50 mg tablet 50 mg PO BID 05/04/25 06/02/25 thiamine HCl (vitamin B1) 50 mg 50 mg PO DAILY 05/04/25 06/02/25 tablet vitamin E mixed 400 unit capsule 400 unit PO DAILY 05/04/25 06/02/25 cyanocobalamin (vitamin B-12) See Rx Instructions .Route 06/02/25 06/02/25 1,000 mcg/mL injection solution .COMPLEX #8 mL methylcobalamin 50 mg IM .2xw #24 pens 06/02/25 06/02/25 metformin 1,000 mg tablet,extended 2,000 mg (2 x 1,000 mg) PO DAILY 07/03/25 release 24hr (osmotic) (Fortamet) #180 tabs amlodipine 5 mg tablet 5 mg PO DAILY #30 tabs 07/25/25 Previous Rx's ?Medication ?Instructions ?Recorded colestipol 1 gram tablet 1 g PO TID #270 tabs 09/06/24 prochlorperazine maleate 5 mg 5 mg PO Q8H PRN #30 tab-caps 10/14/24 tablet losartan 100 1 tab PO DAILY #90 tabs 11/09/24 mg-hydrochlorothiazide 12.5 mg tablet lorazepam 0.5 mg tablet 0.5 mg PO BID PRN anxiety/panic 02/02/25 #10 tabs atorvastatin 20 mg tablet 20 mg PO DAILY #90 tabs 02/21/25 allopurinol 300 mg tablet 300 mg PO DAILY #90 tabs 02/22/25 blood sugar diagnostic (Accu-Chek #100 ea 02/22/25 Guide test strips) blood-glucose meter #1 ea 02/22/25 topiramate 50 mg tablet (Topamax) 50 mg PO HS #90 tab-caps 02/22/25 lancets #100 ea 03/21/25 venlafaxine 37.5 mg 37.5 mg PO DAILY #90 caps 04/04/25 capsule,extended release 24 hr (Effexor XR) syringe with needle 3 mL 25 gauge #4 ea 04/18/25 x 1 (Wazzap Luer Lock Syringe with needle) cyanocobalamin (vitamin B-12) See Rx Instructions .Route 06/02/25 1,000 mcg/mL injection solution .COMPLEX #8 mL methylcobalamin 50 mg IM .2xw #24 pens 06/02/25 metformin 1,000 mg tablet,extended 2,000 mg (2 x 1,000 mg) PO DAILY 07/03/25 release 24hr (osmotic) (Fortamet) #180 tabs amlodipine 5 mg tablet 5 mg PO DAILY #30 tabs 07/25/25 Allergies Allergy/AdvReac Type Severity Reaction Status Date / Time indomethacin AdvReac Severe blood in Verified 07/31/25 13:11 stool dulaglutide (From Trulicity) AdvReac Intermediate upset Verified 07/31/25 13:11 stomach General Stated Complaint: Male Reproductive Problem KRISTA: 3 Course Vital Signs Vital signs: Vital Signs Temperature 36.7 C 07/31/25 13:07 Pulse 103 H 07/31/25 13:07 Respiratory Rate 16 07/31/25 13:07 Blood Pressure 149/91 H 07/31/25 13:07 Pulse Oximetry 96 07/31/25 13:07 Temperature 36.7 C 07/31/25 13:07 Temperature Source Tympanic 07/31/25 13:07 Pulse 103 H 07/31/25 13:07 Respiratory Rate 16 07/31/25 13:07 Blood Pressure 149/91 H 07/31/25 13:07 Pulse Oximetry 96 07/31/25 13:07 Oxygen Delivery Method Room Air 07/31/25 13:07 Oxygen Flow Rate 0 07/31/25 13:07 PFSH All Active Problems (Updated 07/31/25 @ 16:10 by Pablo Vieira MD) Ureterolithiasis (Acute) Hematuria (Acute) ALS (amyotrophic lateral sclerosis) (Acute) B12 deficiency (Acute) Dysphagia (Acute) Fasciculations (Acute) Dysarthria (Acute) Polycythemia (Acute) Hypertension (Chronic) Fatigue (Acute) Muscle twitching (Acute) Weakness (Acute) Obesity (BMI 30.0-34.9) (Acute) Viral pharyngitis (Acute) COVID-19 (Acute ~03/25/22) Lab test positive for detection of COVID-19 virus (Acute) Irritable bowel disease (Chronic) Shoulder pain, left (Acute) Chronic diarrhea (Acute) Acute epididymitis (Acute) Anxiety (Chronic) Situational due to overwork Gout (Chronic) Sprain of shoulder, right (Acute) History of myringotomy (Acute) Status post adenoidectomy (Acute) Pollen allergy (Acute 10/13/17) Loose stools (Acute 10/13/17) Family history of thyroid disease (Acute 10/24/17) Eczema (Acute 07/08/13) Chronic diarrhea (Acute 02/23/18) Psoriasis (Chronic) Continue topamax Migraine headache (Chronic) Type 2 diabetes mellitus without complication, without long-term current use of insulin (Acute 11/24/17) deteriorated NAFLD (nonalcoholic fatty liver disease) (Acute 11/24/17) Hyperlipidemia (Acute 10/13/17) Medical History Chronic diarrhea IBD (neg scope) Migraine Non-alcoholic fatty liver disease Psoriasis Diabetes type 2, controlled Hyperlipidemia Surgical History Myringotomy w/ PE (pressure equalizing) tubes (~1980) Adenoidectomy (~1980) Family History Mother Hyperlipidemia Hypothyroidism Stroke Melanoma Father Essential hypertension Hypothyroidism Stroke Brother No problems noted. Maternal Grandfather Essential hypertension Hyperlipidemia Stroke Prostate cancer Paternal Grandfather Diabetes Essential hypertension Heart disease Hyperlipidemia COPD (chronic obstructive pulmonary disease) Asthma Skin cancer Maternal Grandmother Essential hypertension Heart disease Hyperlipidemia Stroke Paternal Grandmother Diabetes Depression Hyperlipidemia Stroke Son No problems noted. Social History Smoking/Tobacco Use Status: Former Tobacco Use Tobacco: How many years used: 20 Quit status: quit date established Second Hand Exposure: Yes Smoking risk assessment performed?: Yes Alcohol Intake: current Alcohol Intake frequency: holidays/special occasions only Alcohol type: beer, wine and hard liquor Drug use: Socially Substance use type: marijuana and hallucinogens Counseling given: No Adopted: No Caregiver/Support person: No Foster care: No Household members: spouse and children Housing: house Communication Needs: None current occupation: [employer] Pets and animals: Yes Pets and animals: cat(s) Sexually active: Yes Do you think of yourself as: straight/heterosexual Current gender identity: male What is your relationship status?: How often do you talk on the phone with friends or family?: twice per week How often do you get together with friends or relatives?: twice per week How often do you attend anglican or buddhist services?: decline to answer Do you belong to any clubs or organized social groups?: no Panel score (0-1 are the most socially isolated patients): 2 What type of physical activity do you participate in: none, other Details: hiking and additional Amy/Moravian: Agnostic Special amy needs: No Seatbelt use: always Helmet use: Yes Helmet use: always Drive intox or ride w/intox regional owner operator truck driver: No Do you feel safe at home: Yes Do you feel safe in your relationship?: Yes Victim of physical abuse: No Victim of emotional abuse: No Victim of sexual abuse: No Would you like helpful sources: No POCUS Exam (ED) Limited Testicular Exam DATE OF EXAM: 07/31/25 TIME OF EXAM: 14:28 PROVIDER THAT PERFORMED THE STUDY: Pablo Vieira IS THIS A REPEAT STUDY: No Location of Exam: Left Testicle Exam Complete and Right Testicle Exam Complete Incidental Findings: No anechoic fluid collections. Intact flow.
[2025-07-31] MEDS: Normal Saline 500 ML IV (13:50)
[2025-07-31 14:01] LABS: Abs Immature Grans 0.04 10^3/uL (0.0-0.06); HCT 46.9 % (40.0-50.0); HGB 16.1 g/dL (13.5-17.5); Immature Grans % 0.4 %; MCH 30.4 pg (27.0-33.0); MCHC 34.3 % (32.0-36.0); MCV 89 fL (80-95); MPV 10.0 fL (8.0-11.0); Platelet Count 263 10^3/uL (130-400); RBC 5.30 10^6/uL (4.36-5.78); RDW 12.3 % (11.8-14.1); RDW-SD 39.9 fL; WBC 11.17 10^3/uL (4.4-10.8)
[2025-07-31 14:08] LABS: Anion Gap 11.5 mmol/L (3-11); BUN 17 mg/dL (9-23); CO2 22.5 mmol/L (20.0-31.0); Calcium 9.7 mg/dL (8.3-10.6); Chloride 104 mmol/L (98-107); Creatine Kinase 197 U/L (46-171); Glucose 262 mg/dL (74-106); Potassium 3.7 mmol/L (3.5-5.1); Sodium 138 mmol/L (136-145)
[2025-07-31 14:14] VITALS: BP 156/92; PULSE 90; O2SAT 92
--- NOTE | 2025-07-31 14:30 | DI.CT_ITS ---
Exam(s) CT RENAL COLIC WO EXAM: CT RENAL COLIC WO CLINICAL HISTORY: r testicular pain; hematuria. TECHNIQUE: Imaging Protocol: Axial computed tomography images with coronal and sagittal reformatted images were created and reviewed. COMPARISON: No exams were available for comparison FINDINGS: ABDOMEN: Lung Bases: Mild coronary artery calcification is present. Liver: There is diffuse fatty infiltration of the liver with focal fatty sparing adjacent to the gallbladder. No measurable mass. Gallbladder and biliary tract: No radiodense calculus or biliary ductal dilation. Pancreas: Normal density, no abnormal calcifications or inflammatory process. Spleen: Normal. Kidneys: Normal size, contour and axis.There is a 3-4 mm calcification near the right UPJ causing minimal hydronephrosis. No masses seen. Adrenal glands: No mass is seen. Lymph nodes: Within normal limits. Abdominal Aorta: Abdominal portion non-dilated. Mild atherosclerotic calcification is present. PELVIS: Bladder:Symmetric distention, no gross wall thickening. Bowel: No obstruction or bowel wall thickening. Appendix is unremarkable. Peritoneal cavity: No ascites, collection or mesenteric inflammatory response. No free air. Reproductive organs: Unremarkable as visualized. Bones: Within normal limits. Soft Tissues: Within normal limits. IMPRESSION: 1. 3-4 mm right calculus near the UPJ causing minimal hydronephrosis. 2. Fatty infiltration of the liver. 3. The preliminary [facility] report was reviewed. RADIATION DOSE DELIVERED: 986.18mGy.cm Total DLP DATA REPOSITORY: All CT scans at this facility are submitted to the National Radiology Data Registry (NRDR) Dose Index Registry (DIR) with the [employer] (ACR). RADIATION OPTIMIZATION: All CT scans at this facility use at least one of these dose optimization techniques: automated exposure control; mA and/or kV adjustment per patient size (includes targeted exams where dose is matched to clinical indication); or iterative reconstruction.
[2025-07-31 14:32] LABS: Glucose 250 mg/dL (Negative)
[2025-07-31 14:38] LABS: C & S Indicated? No; RBC >50 HPF (0-2)
--- NOTE | 2025-07-31 15:45 | DI.[facility]_ITS ---
PROCEDURE INFORMATION: Exam: CT Abdomen And Pelvis Without Contrast Exam date and time: 07/31/2025 3:05 PM Age: 50 years old Clinical indication: Other: R testicular pain TECHNIQUE: Imaging protocol: Computed tomography of the abdomen and pelvis without contrast. Radiation optimization: All CT scans at this facility use at least one of these dose optimization techniques: automated exposure control; mA and/or kV adjustment per patient size (includes targeted exams where dose is matched to clinical indication); or iterative reconstruction. COMPARISON: No relevant prior studies available. FINDINGS: Liver: Fatty, enlarged liver. Gallbladder and biliary ducts: Normal. No calcified stones. No ductal dilation. Pancreas: Normal. No ductal dilation. Spleen: Normal. No splenomegaly. Adrenal glands: Normal. No mass. Kidneys and ureters: There is mild right caliectasis with a proximal right ureteral obstructing calculus series 2, image 246. It measures less than 5 mm in diameter. Stomach and bowel: Unremarkable. No obstruction. No mucosal thickening. Appendix: No evidence of appendicitis. Intraperitoneal space: Unremarkable. No free air. No significant fluid collection. Vasculature: Mild atherosclerotic change noted in the vasculature. Lymph nodes: Unremarkable. No enlarged lymph nodes. Urinary bladder: Unremarkable as visualized. Reproductive: Unremarkable as visualized. Bones/joints: Unremarkable. No acute fracture. Soft tissues: Unremarkable. IMPRESSION: Proximal right ureteral obstructing calculus. Dictated and Authenticated by: Juliet Rizo MD. Orderin Dariel Shah MD
[2025-07-31 16:27] VITALS: BP 144/104; PULSE 87; RESP 14; O2SAT 96
== END 2025-07-31 16:28 | disposition home or self-care (01) ==
PROVIDERS: Emergency Provider Emergency Medicine; PCP Family Medicine
DX: R31.9 Hematuria, unspecified (principal); N20.2 Calculus of kidney with calculus of ureter
CPT/HCPCS: 76870; 80048; 82550; 96360; 96361; 99285; 74176; 81003; 81015; 85025; 99284

== ENCOUNTER 2025-08-19 14:28 | Emergency (ER) | payer BC, SELFPAY ==
[2025-08-19 14:44] VITALS: BP 149/93; PULSE 90; RESP 16; TEMP 37.2; O2SAT 97
--- NOTE | 2025-08-19 14:51 | W.ED.GENAD ---
Discharge Plan Disposition Patient Disposition: Home Condition: Good Discharge Details Clinical Impression: Right distal ureteral calculus Primary Care Provider: Tony Drake ED Provider: Ernst Byrd Home Meds and New Rx's Prescriptions: New tamsulosin 0.4 mg capsule 0.4 mg PO QHS Qty: 20 0RF Continued losartan-hydrochlorothiazide 100-12.5 mg tablet 1 tab PO DAILY Qty: 90 3RF coenzyme Q10 [Co Q-10] 100 mg capsule 100 mg PO DAILY topiramate [Topamax] 50 mg tablet 50 mg PO HS Qty: 90 3RF allopurinol 300 mg tablet 300 mg PO DAILY Qty: 90 3RF cyanocobalamin (vitamin B-12) 1,000 mcg/mL solution See Rx Instructions .ROUTE .COMPLEX Qty: 8 3RF Dose Instruction: INJECT 1000MCG INTO THE MUSCLE ONCE WEEKLY Rx Instructions: INJECT 1000MCG INTO THE MUSCLE ONCE WEEKLY colestipol 1 gram tablet 1 g PO TID Qty: 270 3RF Rx Instructions: swallow whole tab w/any liquid;do not crush/chew/cut;administer other meds 1hr before/4hr after taking dose dose increase by GI prochlorperazine maleate 5 mg tablet 5 mg PO Q8H PRN Qty: 30 3RF Rx Instructions: Take 1-2 tablets every 8 hours as needed for headache. lorazepam 0.5 mg tablet 0.5 mg PO BID PRN (Reason: anxiety/panic) Qty: 10 0RF atorvastatin 20 mg tablet 20 mg PO DAILY Qty: 90 3RF venlafaxine [Effexor XR] 37.5 mg capsule,extended release 24hr 37.5 mg PO DAILY Qty: 90 3RF dextromethorphan-quinidine 20-10 mg capsule 1 cap PO Q12H ascorbic acid (vitamin C) 500 mg tablet 500 mg PO BID pyridoxine (vitamin B6) 50 mg tablet 50 mg PO DAILY riluzole 50 mg tablet 50 mg PO BID Rx Instructions: administer on an empty stomach, at least 1 hour before or 2 hours after food/meal(s) vitamin E mixed 400 unit capsule 400 unit PO DAILY thiamine HCl (vitamin B1) 50 mg tablet 50 mg PO DAILY amlodipine 5 mg tablet 5 mg PO DAILY Qty: 30 3RF oxycodone 5 mg tablet 5 mg PO Q8H MDD 15 PRN (Reason: pain) Qty: 14 0RF Patient Comments: has not started Discharge Instructions Additional Instructions: You were seen for continued/worse pain related to your kidney stone. While it has not passed, it has moved all the way down. Hopefully, by adding tamsulosin we will help passage of the stone. Use acetaminophen for pain but if it is not controlled use the oxycodone Dr. Jimenez has prescribed. Follow up with Dr. Mccauley on Friday as planned. Return to ED for uncontrolled pain/vomiting or if you develop fever. Stand Alone Forms: Portal Information HPI General Mode of arrival: ambulatory. Date/Time Provider Initiated Documentation: 08/19/25 14:35. Limitations to Documentation: no limitations. Information obtained by: patient, RN notes reviewed and old records reviewed. HPI Narrative: Patient presents to ED with continued/worsening right flank pain. Patient diagnosed with a right proximal ureteral stone on July 31. Does not always strain his urine but typically does and has not passed the stone. Today pain has been present since 5 AM despite taking tramadol. Has been nauseated but no vomiting. Denies fever. Has noticed blood in his urine intermittently. Denies any abdominal pain. It is all back and flank. Does not seem to have moved a whole lot. Called and spoke to urology who referred him to ED to rule out obstruction. Related Data Home Medications ?Medication ?Instructions ?Recorded ?Confirmed coenzyme Q10 100 mg capsule (Co 100 mg PO DAILY 05/26/18 08/19/25 Q-10) colestipol 1 gram tablet 1 g PO TID #270 tabs 09/06/24 08/19/25 prochlorperazine maleate 5 mg 5 mg PO Q8H PRN #30 tab-caps 10/14/24 08/19/25 tablet losartan 100 1 tab PO DAILY #90 tabs 11/09/24 08/19/25 mg-hydrochlorothiazide 12.5 mg tablet lorazepam 0.5 mg tablet 0.5 mg PO BID PRN anxiety/panic 02/02/25 08/19/25 #10 tabs atorvastatin 20 mg tablet 20 mg PO DAILY #90 tabs 02/21/25 08/19/25 allopurinol 300 mg tablet 300 mg PO DAILY #90 tabs 02/22/25 08/19/25 topiramate 50 mg tablet (Topamax) 50 mg PO HS #90 tab-caps 02/22/25 08/19/25 venlafaxine 37.5 mg 37.5 mg PO DAILY #90 caps 04/04/25 08/19/25 capsule,extended release 24 hr (Effexor XR) ascorbic acid (vitamin C) 500 mg 500 mg PO BID 05/04/25 08/19/25 tablet dextromethorphan 20 mg-quinidine 1 cap PO Q12H 05/04/25 08/19/25 10 mg capsule pyridoxine (vitamin B6) 50 mg 50 mg PO DAILY 05/04/25 08/19/25 tablet riluzole 50 mg tablet 50 mg PO BID 05/04/25 08/19/25 thiamine HCl (vitamin B1) 50 mg 50 mg PO DAILY 05/04/25 08/19/25 tablet vitamin E mixed 400 unit capsule 400 unit PO DAILY 05/04/25 08/19/25 cyanocobalamin (vitamin B-12) See Rx Instructions .Route 06/02/25 08/19/25 1,000 mcg/mL injection solution .COMPLEX #8 mL amlodipine 5 mg tablet 5 mg PO DAILY #30 tabs 07/25/25 08/19/25 oxycodone 5 mg tablet 5 mg PO Q8H PRN pain #14 tabs 08/19/25 08/19/25 tamsulosin 0.4 mg capsule 0.4 mg PO QHS #20 caps 08/19/25 Previous Rx's ?Medication ?Instructions ?Recorded colestipol 1 gram tablet 1 g PO TID #270 tabs 09/06/24 prochlorperazine maleate 5 mg 5 mg PO Q8H PRN #30 tab-caps 10/14/24 tablet losartan 100 1 tab PO DAILY #90 tabs 11/09/24 mg-hydrochlorothiazide 12.5 mg tablet lorazepam 0.5 mg tablet 0.5 mg PO BID PRN anxiety/panic 02/02/25 #10 tabs atorvastatin 20 mg tablet 20 mg PO DAILY #90 tabs 02/21/25 allopurinol 300 mg tablet 300 mg PO DAILY #90 tabs 02/22/25 topiramate 50 mg tablet (Topamax) 50 mg PO HS #90 tab-caps 02/22/25 venlafaxine 37.5 mg 37.5 mg PO DAILY #90 caps 04/04/25 capsule,extended release 24 hr (Effexor XR) cyanocobalamin (vitamin B-12) See Rx Instructions .Route 06/02/25 1,000 mcg/mL injection solution .COMPLEX #8 mL amlodipine 5 mg tablet 5 mg PO DAILY #30 tabs 07/25/25 oxycodone 5 mg tablet 5 mg PO Q8H PRN pain #14 tabs 08/19/25 tamsulosin 0.4 mg capsule 0.4 mg PO QHS #20 caps 08/19/25 Allergies Allergy/AdvReac Type Severity Reaction Status Date / Time indomethacin AdvReac Severe blood in Verified 08/19/25 14:48 stool dulaglutide ([facility]) AdvReac Intermediate upset Verified 08/19/25 14:48 stomach General Stated Complaint: FlankPain KRISTA: 3 Exam Narrative Exam Narrative: Const: WDWN male in NAD. VS per triage. HEENT: NC/AT. Normal facial exam. Neck: Supple. Trachea midline. Lungs: Normal respiratory effort. Lungs are clear. Cor: RRR without murmur. GI: Soft/ND/NT. Neuro: A+O x 3. Normal mentation. Course Vital Signs Vital signs: Vital Signs Temperature 98.9 F 08/19/25 14:44 Pulse 90 08/19/25 14:44 Respiratory Rate 16 08/19/25 14:44 Blood Pressure 149/93 H 08/19/25 14:44 Pulse Oximetry 97 08/19/25 14:44 Temperature 98.9 F 08/19/25 14:44 Temperature Source Oral 08/19/25 14:44 Pulse 90 08/19/25 14:44 Respiratory Rate 16 08/19/25 14:44 Blood Pressure 149/93 H 08/19/25 14:44 Blood Pressure Position Sitting 08/19/25 14:44 Pulse Oximetry 97 08/19/25 14:44 Oxygen Delivery Method Room Air 08/19/25 14:44 Oxygen Flow Rate 0 08/19/25 14:44 Pain Level 6 08/19/25 14:44 Medical Decision Making Patient presenting to ED with a known right proximal ureteral stone that he does not think has passed. Has had worsening and persistent pain since 5 AM. No fever that he is aware of. Abdomen is benign. Will place IV and give morphine and ondansetron for his symptoms. Urinalysis and labs ordered. Initial order for renal ultrasound placed but received call from radiology that ultrasound not available at this time. Discussed with patient and will obtain CT instead to evaluate for possibility of obstruction. Labs significant for elevated WBC at 17.6 but patient without fever and urine is negative for infection. Kidney function remains normal. Potassium a little low and glucose a little high. CT scan shows the stone has moved to the distal ureter/UVJ. There is some increase in hydroureter/hydronephrosis with some stranding but given that the stone is now distal hopefully starting tamsulosin will help with expulsion of stone. Patient has follow up with Dr. Mccauley on Friday. Patient comfortable with plan to start tamsulosin, first dose given here. He has oxycodone prescribed by PCP. Return to ED over weekend if any problems/concerns. Medical Records Medical records reviewed: Yes I reviewed the patient's medical records. Medical records narrative: previous ED visit and subsequent PCP visit Lab Data Lab results reviewed: Yes I reviewed the patient's lab results. Lab results narrative: see [facility] All Active Problems (Updated 08/19/25 @ 17:53 by Ernst Byrd MD) Right distal ureteral calculus (Acute) Ureterolithiasis (Acute) Hematuria (Acute) ALS (amyotrophic lateral sclerosis) (Acute) B12 deficiency (Acute) Dysphagia (Acute) Fasciculations (Acute) Dysarthria (Acute) Polycythemia (Acute) Hypertension (Chronic) Fatigue (Acute) Muscle twitching (Acute) Weakness (Acute) Obesity (BMI 30.0-34.9) (Acute) Viral pharyngitis (Acute) COVID-19 (Acute ~03/25/22) Lab test positive for detection of COVID-19 virus (Acute) Irritable bowel disease (Chronic) Shoulder pain, left (Acute) Chronic diarrhea (Acute) Acute epididymitis (Acute) Anxiety (Chronic) Situational due to overwork Gout (Chronic) Sprain of shoulder, right (Acute) History of myringotomy (Acute) Status post adenoidectomy (Acute) Pollen allergy (Acute 10/13/17) Loose stools (Acute 10/13/17) Family history of thyroid disease (Acute 10/24/17) Eczema (Acute 07/08/13) Chronic diarrhea (Acute 02/23/18) Psoriasis (Chronic) Continue topamax Migraine headache (Chronic) Type 2 diabetes mellitus without complication, without long-term current use of insulin (Acute 11/24/17) deteriorated NAFLD (nonalcoholic fatty liver disease) (Acute 11/24/17) Hyperlipidemia (Acute 10/13/17) Medical History Chronic diarrhea IBD (neg scope) Migraine Non-alcoholic fatty liver disease Psoriasis Diabetes type 2, controlled Hyperlipidemia Surgical History Myringotomy w/ PE (pressure equalizing) tubes (~1980) Adenoidectomy (~1980) Family History Mother Hyperlipidemia Hypothyroidism Stroke Melanoma Father Essential hypertension Hypothyroidism Stroke Brother No problems noted. Maternal Grandfather Essential hypertension Hyperlipidemia Stroke Prostate cancer Paternal Grandfather Diabetes Essential hypertension Heart disease Hyperlipidemia COPD (chronic obstructive pulmonary disease) Asthma Skin cancer Maternal Grandmother Essential hypertension Heart disease Hyperlipidemia Stroke Paternal Grandmother Diabetes Depression Hyperlipidemia Stroke Son No problems noted. 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 Pets and animals: Yes Pets and animals: cat(s) Sexually active: Yes Do you think of yourself as: straight/heterosexual Current gender identity: male What is your relationship status?: How often do you talk on the phone with friends or family?: twice per week How often do you get together with friends or relatives?: twice per week How often do you attend yarsani or methodist services?: decline to answer Do you belong to any clubs or organized social groups?: no Panel score (0-1 are the most socially isolated patients): 2 What type of physical activity do you participate in: none, other Details: hiking and additional Amy/Congregation: [employer] Special amy needs: No Seatbelt use: always Helmet use: Yes Helmet use: always Drive intox or ride w/intox transport truck driver: No Do you feel safe at home: Yes Do you feel safe in your relationship?: Yes Victim of physical abuse: No Victim of emotional abuse: No Victim of sexual abuse: No Would you like helpful sources: No
[2025-08-19 15:39] LABS: Glucose 500 mg/dL (Negative)
[2025-08-19 15:49] LABS: Abs Immature Grans 0.07 10^3/uL (0.0-0.06); HCT 44.7 % (40.0-50.0); HGB 16.1 g/dL (13.5-17.5); Immature Grans % 0.4 %; MCH 31.4 pg (27.0-33.0); MCHC 36.0 % (32.0-36.0); MCV 87 fL (80-95); MPV 9.5 fL (8.0-11.0); Platelet Count 211 10^3/uL (130-400); RBC 5.13 10^6/uL (4.36-5.78); RDW 11.8 % (11.8-14.1); RDW-SD 38.1 fL; WBC 17.60 10^3/uL (4.4-10.8)
[2025-08-19 15:52] LABS: C & S Indicated? No; RBC 20-50 HPF (0-2); WBC Negative HPF (0-5)
[2025-08-19] MEDS: Ondansetron 4 MG/2 ML VIAL IVP (16:04)
[2025-08-19] MEDS: Normal Saline Flush 10 ML SYR IVP (16:04)
[2025-08-19] MEDS: MORPHine 10 MG/ML VIAL 4 MG IVP (16:04)
[2025-08-19 16:26] LABS: Anion Gap 13.1 mmol/L (3-11); BUN 19 mg/dL (9-23); CO2 22.9 mmol/L (20.0-31.0); Calcium 9.5 mg/dL (8.3-10.6); Chloride 100 mmol/L (98-107); Glucose 255 mg/dL (74-106); Potassium 3.3 mmol/L (3.5-5.1); Sodium 136 mmol/L (136-145)
--- NOTE | 2025-08-19 16:30 | DI.CT_ITS ---
Exam(s) CT RENAL COLIC WO EXAM: CT RENAL COLIC WO CLINICAL HISTORY: continued/worse right back pain; known stone. TECHNIQUE: Imaging Protocol: Axial computed tomography images with coronal and sagittal reformatted images were created and reviewed. COMPARISON: CT CT RENAL COLIC WO from 07/31/2025 FINDINGS: Arm mild streak artifact related to patient arm positioning. Lung Bases: No acute findings. Liver: Enlarged liver with moderate hepatic steatosis. No measurable mass. Gallbladder and biliary tract: No radiodense calculus. No biliary ductal dilation. Pancreas: No abnormal calcifications or inflammatory process. Spleen: Normal size. Kidneys: Normal size, contour and axis.No suspicious masses seen. The previously noted stone near the right ureteropelvic junction is now located distally, approximately 3 cm superior to the ureterovesical junction. The amount of ureteral and pelvic dilatation has increased from the previous exam. There is now mild perinephric stranding. Adrenal glands: No mass is seen. Lymph nodes: Within normal limits. Vasculature: Abdominal aorta non-dilated. Bladder:No stones. No gross wall thickening. No evidence of mass. Bowel: No obstruction. No bowel wall thickening. Peritoneal cavity: No ascites.No free air. No focal collection. No mesenteric inflammatory response. Reproductive organs: Within normal limits. Bones: Unremarkable for age. Soft Tissues: Within normal limits. IMPRESSION: The previously noted stone at the right ureteropelvic junction is now located in the distal ureter approximately 3 cm above the ureterovesical junction. There is [id number] hydronephrosis and mild perinephric stranding, increasing from the prior exam where there is only minimal hydronephrosis. Findings were called to Joaquin Ballard of the emergency department. RADIATION DOSE DELIVERED: Total DLP Total DLP DATA REPOSITORY: All CT scans at this facility are submitted to the National Radiology Data Registry (NRDR) Dose Index Registry (DIR) with the [employer] (ACR). RADIATION OPTIMIZATION: All CT scans at this facility use at least one of these dose optimization techniques: automated exposure control; mA and/or kV adjustment per patient size (includes targeted exams where dose is matched to clinical indication); or iterative reconstruction.
[2025-08-19] MEDS: Tamsulosin 0.4 MG CAPCR PO (18:17)
[2025-08-19] MEDS: oxyCODONE 5 MG TAB PO (18:18)
== END 2025-08-19 17:57 | disposition home or self-care (01) ==
PROVIDERS: Emergency Provider Emergency Medicine; PCP Family Medicine
DX: N20.1 Calculus of ureter (principal); R10.A1 Flank pain, right side
CPT/HCPCS: 99284 ×2; 96374; 96375; 36415; 80048; 74176; 81003; 81015; 85025; J2270; J2405